=== PATIENT | female | born 1980 | race Caucasian/White ===

== ENCOUNTER 2021-06-03 07:41 | Emergency (ER) | payer OTHER, SELFPAY ==
[2021-06-03 07:46] VITALS: BP 131/59; PULSE 70; RESP 14; TEMP 36.9; O2SAT 96
[2021-06-03 08:10] LABS: Basophils % 0.5 %; Eosinophils # 0.3 10^3/uL (0.0-0.8); Eosinophils % 4.1 %; Hematocrit 42.6 % (37.0-47.0); Hemoglobin 14.3 g/dL (11.5-15.3); Lymphocytes # 2.3 10^3/uL (0.8-4.8); Lymphocytes % 34.8 %; Mean Corpuscular HGB Conc 33.6 g/dL (30.0-36.0); Mean Corpuscular Volume 92.2 fl (81-99); Monocytes # 0.6 10^3/uL (0.2-0.9); Monocytes % 8.6 %; Neutrophils # 3.38 10^3/uL (1.8-7.7); Neutrophils % 51.7 %; Nucleated Red Blood Cells % 0 %; Platelet Count 228 10^3/cmm (130-400); Red Blood Count 4.62 10^6/uL (4.1-5.3); Red Cell Distribution Width 12.5 % (12.1-15.1); White Blood Count 6.5 10^3/uL (4.0-10.0)
--- NOTE | 2021-06-03 08:15 | CT_ITS ---
WS: [id number] CT HEAD TECHNIQUE: Noncontrast CT of the head obtained from the skullbase to the vertex. CLINICAL INFORMATION: new onset seizures COMPARISON: None. DLP: 796.[address] scans at [facility] [place] use at least one of these dose optimization techniques: automated e xposure control; mA and/or kV adjustment per patient size (includes targeted exams where dose is matc hed to clinical indication); or iterative reconstruction. FINDINGS: No evidence of intracranial hemorrhage or mass effect. Ventricular system and basal cisterns are heller nt. No extra-axial fluid collections. Tiny chronic lacunar infarct left caudate. No evidence of mass or mass effect. Normal bower-white differentiation. Mild mucosal thickening in the paranasal sinuses. Mastoid air cells are well aerated. Normal visualiz ed soft tissues. CT/CT head wo con* [id number] IMPRESSION: 1. No evidence of intracranial hemorrhage or mass effect. 2. Normal bower-white differentiation. 3. Tiny chronic lacunar infarct left caudate. 4. Mild mucosal thickening in the paranasal sinuses. 5. No acute intracranial findings.
--- NOTE | 2021-06-03 08:16 | W.ED.SEIZURE ---
HPI - Seizure General: Chief Complaint: Seizure Stated Complaint: seizure activity Time Seen by Provider: 06/03/21 07:45 History of Present Illness: HPI Narrative: 40-year-old female brought in this morning by EMS after witnessed seizure at home. Her witnessed a seizure when I first went in to see her she is aware he witnessed it and she is aware that something happened but she cannot tell me a lot of details. She can remember a few vague things from prior to the seizure and then the Nexium she recalls is ambulance. She tells me she had a similar episode this summer while her camping was not as intense as she describes it. She states that she was never seen after that episode. She does not have any major medical problems she has had a little bit of upper respiratory symptoms last few days otherwise she denies any other pain or aches bowels bladder respiratory is otherwise been normal. She has no known history or family history of seizures. MD complaint: seizure Description of Episode: tonic-clonic movement Witnessed: Yes - by Bystander Trauma: No Seizure History: Yes Place: Home Possible Precipitating Event: none Associated symptoms: Reports confusion; Deny chest pain, chills, cough, diaphoresis, fever(s), anorexia, malaise, rash, short of breath, syncope or weakness Treatments prior to arrival: none Review of Systems Const: Denies: fever(s), chills, malaise or diaphoresis ENMT: Denies: throat pain, ear or mastoid pain, nasal discharge or nasal congestion Card: Denies: chest pain or syncope Resp: Denies: dyspnea, productive cough or non-productive cough GI: Denies: abdominal pain, nausea, vomiting, hematemesis, coffee ground emesis, diarrhea, constipation, bloating, hematochezia or melena : Denies: flank pain, difficulty voiding, dysuria, urinary frequency or urinary urgency Skin/Breast: Denies: rash or pruritus Neuro: Reports: confusion PFSH ED PFSH: Medical History Anxiety with depression Endocervical polyp (~2019) Surgical History History of back surgery (2005) Family History Grandfather Stroke PGF Grandmother Cancer MGM-- Pancreatic CA Denies family history of Diabetes Hypertension Social History Additional social history: - Tobacco use: Denies Alcohol use: Social Drug use: Denies Physical Exam Const: COMMON NORMALS: no acute distress GENERAL APPEARANCE: cooperative and comfortable ORIENTATION/CONSCIOUSNESS: Yes awake, Yes oriented to person, Yes oriented to place and Yes oriented to time HENMT: COMMON NORMALS: normocephalic, atraumatic, hearing grossly normal bilaterally, external ears normal, EAC's normal, TM's normal bilaterally, Normal nasal mucous membranes and turbinates present, moist oral mucous membranes and oropharynx normal HEAD & SCALP: normocephalic and atraumatic NOSE: Normal nasal mucous membranes and turbinates present EXTERNAL EAR: Yes external ears normal EXTERNAL AUDITORY CANAL: EAC's normal TYMPANIC MEMBRANE: TM's normal bilaterally Eye: COMMON NORMALS: Equal, round and reactive pupils present, EOMs intact bilaterally, conjunctivae normal and no scleral icterus CONJUNCTIVA: Yes conjunctivae normal PUPIL: Yes Equal, round and reactive pupils present Neck/C-Spine: COMMON NORMALS: full ROM, no lymphadenopathy, supple and no JVD Lymph: LYMPHATIC: no lymphadenopathy noted and no lymphedema noted Resp: COMMON NORMALS: normal respiratory effort, No retractions, No use of accessory muscles and clear to auscultation bilaterally AUSCULTATION: clear to auscultation bilaterally Cardio: COMMON NORMALS: no JVD, regular rate, regular rhythm and No murmurs present (Cardio) RATE: regular rate RHYTHM: regular rhythm GI: COMMON NORMALS: Soft to palpation and No hepatosplenomegaly present AUSCULTATION: Yes normoactive bowel sounds PALPATION: Yes Soft to palpation, No Tenderness to palpation present (GI), No Guarding due to palpation present (GI) and Yes No hepatosplenomegaly present Extremity: COMMON NORMALS: normal to inspection, capillary refill normal, no clubbing, cyanosis or edema, no calf tenderness and no pedal edema Neuro: SENSORIUM/ORIENTATION: Yes oriented to person, Yes oriented to place and Yes oriented to time Skin: COMMON NORMALS: no rashes or lesions noted GENERAL SKIN EXAM: no rashes or lesions noted Course Vital Signs: Vital signs: Vital Signs Temperature 98.5 F 09/10/21 11:18 Pulse Rate 57 L 06/03/21 11:45 Respiratory Rate 16 06/03/21 11:45 Blood Pressure 104/61 06/03/21 11:45 Pulse Oximetry 99 06/03/21 11:45 MDM - Seizure MDM Narrative: Medical decision making narrative: Reviewed lab and imaging findings with the patient discussed the plan will go and discharge her home Eric set her up for an EEG and follow-up with neurology return if has problems advised not to drive use heavy machinery ladders or step ladders etc. Lab Data: Labs: Lab Results 06/03/21 06/03/21 06/03/21 Range/Units 07:06 07:06 07:06 WBC 6.5 (4.0-10.0) 10^3/ uL RBC 4.62 (4.1-5.3) 10^6/u L Hgb 14.3 (11.5-15.3) g/dL Hct 42.6 (37.0-47.0) % MCV 92.2 (81-99) fl MCH 31.0 (28.0-34.0) pg MCHC 33.6 (30.0-36.0) g/dL RDW 12.5 (12.1-15.1) % Plt Count 228 (130-400) 10^3/c mm MPV 10.0 (7.4-10.4) fL Neut % (Auto) 51.7 % Lymph % (Auto) 34.8 % Republic % (Auto) 8.6 % Eos % (Auto) 4.1 % Baso % (Auto) 0.5 % Neut # (Auto) 3.38 (1.8-7.7) 10^3/u L Lymph # (Auto) 2.3 (0.8-4.8) 10^3/u L Republic # (Auto) 0.6 (0.2-0.9) 10^3/u L Eos # (Auto) 0.3 (0.0-0.8) 10^3/u L Baso # (Auto) 0.0 (0.0-0.1) 10^3/u L Nucleated RBC % (a uto) 0 % Nucleated RBCs # 0.0 /100WBC Sodium 137 (136-145) mmol/L Potassium 4.1 (3.5-5.1) mmol/L Chloride 100 (98-107) mmol/L Carbon Dioxide 26 (22-29) mmol/L Anion Gap 15.1 (5-19) BUN 10 (6-20) mg/dL Creatinine 0.7 (0.5-0.9) mg/dL GFR Calculation 91.8 (90-130) mL/min Glucose 108 (65-115) mg/dL Calculated Osmolal ity 284 L (285-295) mOsm/k g Calcium 8.7 (8.5-10.5) mg/dL Total Bilirubin 0.3 (0.15-1.2) mg/dL AST 14 (0-32) U/L ALT 11 (0-33) U/L Alkaline Phosphata se 63 (35-105) IU/L Creatine Kinase 65 (26-192) U/L Total Protein 7.2 (6.6-8.7) g/dL Albumin 4.0 (3.5-5.2) g/dL Globulin 3.2 (1.3-4.6) g/dL Urine Opiates Scre en (Negative) ng/mL Ur Barbiturates Sc reen (Negative) ng/mL Ur Phencyclidine S crn (Negative) ng/mL Ur Amphetamines Sc reen (Negative) ng/mL U Benzodiazepines Scrn (Negative) ng/mL Urine Cocaine Scre en (Negative) ng/mL U Marijuana (THC) Screen (Negative) ng/mL 06/03/21 Range/Units 07:45 WBC (4.0-10.0) 10^3/ uL RBC (4.1-5.3) 10^6/u L Hgb (11.5-15.3) g/dL Hct (37.0-47.0) % MCV (81-99) fl MCH (28.0-34.0) pg MCHC (30.0-36.0) g/dL RDW (12.1-15.1) % Plt Count (130-400) 10^3/c mm MPV (7.4-10.4) fL Neut % (Auto) % Lymph % (Auto) % Republic % (Auto) % Eos % (Auto) % Baso % (Auto) % Neut # (Auto) (1.8-7.7) 10^3/u L Lymph # (Auto) (0.8-4.8) 10^3/u L Republic # (Auto) (0.2-0.9) 10^3/u L Eos # (Auto) (0.0-0.8) 10^3/u L Baso # (Auto) (0.0-0.1) 10^3/u L Nucleated RBC % (a uto) % Nucleated RBCs # /100WBC Sodium (136-145) mmol/L Potassium (3.5-5.1) mmol/L Chloride (98-107) mmol/L Carbon Dioxide (22-29) mmol/L Anion Gap (5-19) BUN (6-20) mg/dL Creatinine (0.5-0.9) mg/dL GFR Calculation (90-130) mL/min Glucose (65-115) mg/dL Calculated Osmolal ity (285-295) mOsm/k g Calcium (8.5-10.5) mg/dL Total Bilirubin (0.15-1.2) mg/dL AST (0-32) U/L ALT (0-33) U/L Alkaline Phosphata se (35-105) IU/L Creatine Kinase (26-192) U/L Total Protein (6.6-8.7) g/dL Albumin (3.5-5.2) g/dL Globulin (1.3-4.6) g/dL Urine Opiates Scre en Negative (Negative) ng/mL Ur Barbiturates Sc reen Negative (Negative) ng/mL Ur Phencyclidine S crn Negative (Negative) ng/mL Ur Amphetamines Sc reen Negative (Negative) ng/mL U Benzodiazepines Scrn Negative (Negative) ng/mL Urine Cocaine Scre en Negative (Negative) ng/mL U Marijuana (THC) Screen Negative (Negative) ng/mL Discharge Plan Discharge Patient Disposition: Home Clinical Impression: Generalized seizure Condition: Stable Prescriptions: New Keppra 500 mg tablet 500 mg PO BID Qty: 60 RF: 0 No Action escitalopram oxalate [Lexapro] 20 mg tablet 20 mg PO DAILY@19 RF: 0 Mucinex D 60-600 mg Tablet Extended Release 12 Hr 2 tab PO QAM RF: 0 Aleve 220 mg Tablet 220 - 440 mg PO Q4H PRN (Reason: Pain) RF: 0 Mucinex Pm 2 tab PO BEDTIME RF: 0 Discharge Orders: Discharge ED (Routine); Ordered 06/03/21 Ordered By: Zander Guthrie Referrals: Gadiel Goins MD [Primary Care Provider] - Discharge Diet: Usual diet Discharge Activity: Limit activity as instructed Patient Instructions: Opioid Safety Activity Restrictions/Additional Instructions: Recommend not driving using ladders or stepstools or any heavy equipment or power tools. Case management will call to set up an EEG and follow-up with neurology. If you have recurrent seizures return. Coding Level of Care Code ED Endless [employer]amer Tender for Chg Fwd Exam Comprehensive
[2021-06-03 08:24] VITALS: BP 118/68; PULSE 62; RESP 165; O2SAT 98
[2021-06-03 08:30] LABS: Alanine Aminotransferase 11 U/L (0-33); Alkaline Phosphatase 63 IU/L (35-105); Anion Gap 15.1 (5-19); Aspartate Amino Transferase 14 U/L (0-32); Blood Urea Nitrogen 10 mg/dL (6-20); Calcium 8.7 mg/dL (8.5-10.5); Carbon Dioxide 26 mmol/L (22-29); Chloride 100 mmol/L (98-107); Creatinine Clr Calc Pharmacy 92.5099; Globulin 3.2 g/dL (1.3-4.6); Glomerular Filtration Rate 91.8 mL/min (90-130); Glucose 108 mg/dL (65-115); Osmolality Calculated 284 mOsm/kg (285-295); Potassium 4.1 mmol/L (3.5-5.1); Sodium 137 mmol/L (136-145); Total Bilirubin 0.3 mg/dL (0.15-1.2); Total Protein 7.2 g/dL (6.6-8.7)
[2021-06-03 08:41] LABS: Amphetamines Screen Urine Negative (Negative); Barbiturates Screen Urine Negative (Negative); Benzodiazepines Screen Urine Negative (Negative); Cocaine Screen Urine Negative (Negative); Opiate Screen Urine Negative (Negative); PCP Screen Urine Negative (Negative); THC Screen Urine Negative (Negative)
[2021-06-03 08:41] LABS: Creatine Phosphokinase 65 U/L (26-192)
--- NOTE | 2021-06-03 08:42 | PC.PHAR ---
pt states she takes care of her own medications-pt states she thinks she has been taking the mucinex d 2 tabs qam pt states shes pretty sure its the mucinex d that she had from before ext med history shows last filled 06/22/20 9d/s-pt states she has also been taking a mucinex pm at bedtime states she is unsure what all is in the pm tab she has been taking
[2021-06-03 11:18] VITALS: BP 106/57; PULSE 54; RESP 16; TEMP 36.9; O2SAT 97
[2021-06-03 11:45] VITALS: BP 104/61; PULSE 57; RESP 16; O2SAT 99
--- NOTE | 2021-06-03 12:51 | DCPLANNER ---
project development manager had message to schedule a follow up appointment for patient with neurology. project development manager emailed patients information to the neurology clinic. Patients information will be printed and reviewed. Clinic will call patient with appointment information.
[2021-06-04 14:53] LABS: Quest SARS-CoV-2 RNA NOT DETECTED (NOT DETECTED)
--- NOTE | 2021-06-04 18:38 | PC.NURSE ---
pt notified of negative covid results
--- NOTE | 2021-06-08 10:47 | DCPLANNER ---
Addendum entered by Karon Rosenberg 10/14/21 14:15: Patient had a follow up appointment scheduled with Dr. Mello - patient did attend appointment. Original Note: Patient has a follow up appointment scheduled for Tuesday, July 06, 2021 at 2:45 with [facility]. Clinic will call patient with appointment information.
== END 2021-06-03 11:46 | disposition home or self-care (01) ==
PROVIDERS: Emergency Provider Family Medicine; Family Provider Family Medicine; PCP Family Medicine
DX: G40.409 Other generalized epilepsy and epileptic syndromes, not intractable, without status epilepticus (principal); Z20.822 Contact with and (suspected) exposure to COVID-19
CPT/HCPCS: 70450; 80053; 80306; 82550; 85025; 87635; 96374; 99284; J1953

== ENCOUNTER → 2021-06-16 07:57 | Outpatient (BNVA) | payer OTHER, SELFPAY | PROVIDERS: Family Provider Family Medicine; PCP Family Medicine; Referring Provider Family Medicine; Visit Provider Specialist | DX: G40.909 Epilepsy, unspecified, not intractable, without status epilepticus (principal) | CPT/HCPCS: 95816 ==

== ENCOUNTER → 2021-06-20 11:37 | Outpatient (BNVA) | payer OTHER, SELFPAY | PROVIDERS: Family Provider Family Medicine; PCP Family Medicine; Referring Provider Family Medicine; Visit Provider Specialist | DX: R56.9 Unspecified convulsions (principal); F41.9 Anxiety disorder, unspecified | CPT/HCPCS: 99205 ==

== ENCOUNTER 2021-06-28 17:05 | Outpatient (CLI) | payer OTHER, SELFPAY ==
--- NOTE | 2021-06-28 17:30 | MR_ITS ---
WS: [id number] MRI BRAIN WITHOUT CONTRAST HISTORY: R56.9 - Unspecified convulsions COMPARISON: CT 06/03/2021 TECHNIQUE: Diffusion imaging, multiplanar T1, T2 and FLAIR imaging obtained. No evidence for acute infarct or hemorrhage. Merrill-white matter differentiation is normal. There is a tiny lacunar infarct in the LEFT caudate head. There are a few scattered T2 and FLAIR sign al hyperintensities in the white matter. These are within the LEFT cerebrum. These are very nonspecif ic and there are only a few white matter lesions. Ventricles and extra-axial spaces are normal. No inferior displacement of cerebellar tonsils. The sella turcica and pituitary gland are unremarkabl e. Dural venous sinuses and [place] demonstrate no abnormality on this unenhanced studies. Paranasal sinuses: Moderate mucous retention cyst in the LEFT maxillary sinus. Mastoid air cells: Normal. Calvarium and scalp: Intact. MR/MR head wo con* [id number] IMPRESSION: 1. No acute infarct or hemorrhage. 2. Remote tiny lacunar infarct in the LEFT caudate head. 3. Very few T2 and FLAIR signal hyperintensities in the LEFT white matter. The se are nonspecific and could be related to microvascular ischemic disease, migr aines or history of smoking.
== END 2021-06-28 17:06 | disposition home or self-care (01) ==
LOC: RADSHAW 17:09
PROVIDERS: PCP Family Medicine; Visit Provider Specialist
DX: R56.9 Unspecified convulsions (principal)
CPT/HCPCS: 70551

== ENCOUNTER → 2021-07-04 09:06 | Outpatient (BNVA) | payer OTHER, SELFPAY | PROVIDERS: PCP Family Medicine; Visit Provider Specialist | DX: R56.9 Unspecified convulsions (principal) | CPT/HCPCS: 95816 ==

== ENCOUNTER 2021-08-12 11:15 | Outpatient (CLI) | payer OTHER, SELFPAY ==
--- NOTE | 2021-08-12 11:30 | MM_ITS ---
WS: [id number] SCREENING DIGITAL MAMMOGRAM WITH CAD HISTORY: Z12.39 - Encounter for other screening for malignant neoplasm... COMPARISON: 06/19/2019 Bilateral CC and MLO views submitted. Computer aided detection analyzed. Breast composition: The breasts are extremely dense, which lowers the sensitivity of mammography. No suspicious masses, microcalcifications or architectural distortion. Scattered benign calcifications i n each breast. MM/[place] [id number] IMPRESSION: BI-RADS: 2-Benign FOLLOW UP: 1 Year Follow-up
== END 2021-08-12 11:16 | disposition home or self-care (01) ==
PROVIDERS: PCP Family Medicine; Visit Provider Nurse Practitioner Women's Health
DX: Z12.39 Encounter for other screening for malignant neoplasm of breast (principal)
CPT/HCPCS: 77067

== ENCOUNTER → 2022-08-11 15:40 | Outpatient (BNVA) | payer OTHER, SELFPAY | PROVIDERS: PCP Family Medicine; Visit Provider Nurse Practitioner Women's Health | DX: Z13.29 Encounter for screening for other suspected endocrine disorder (principal); Z12.4 Encounter for screening for malignant neoplasm of cervix; Z13.220 Encounter for screening for lipoid disorders; Z13.1 Encounter for screening for diabetes mellitus; Z13.228 Encounter for screening for other metabolic disorders; Z13.0 Encounter for screening for diseases of the blood and blood-forming organs and certain disorders involving the immune mechanism | CPT/HCPCS: 87624 ==

== ENCOUNTER 2022-09-28 07:50 | Outpatient (CLI) | payer OTHER, SELFPAY ==
--- NOTE | 2022-09-28 08:03 | MM_ITS ---
WS: [id number] Bilateral screening 3D tomosynthesis digital mammogram, 09/28/2022 Clinical Data: SCREEN Comparison: 08/11/2021, 06/19/2019. Findings: The breast parenchymal pattern shows extreme density. No spiculated masses or clustered calcification s are seen. There are no secondary signs of carcinoma. There are scattered small benign calcification s in both breasts. MM/[place] [id number] Impression: 1. Negative bilateral mammogram unchanged. 2. Recommend annual screening mammograms. BIRADS: 2-Benign FOLLOW UP: 1 Year Follow-up The CAD instrument checker was used.
== END 2022-09-28 07:51 | disposition home or self-care (01) ==
LOC: RAD 07:50
PROVIDERS: PCP Family Medicine; Visit Provider Nurse Practitioner Women's Health
DX: Z12.31 Encounter for screening mammogram for malignant neoplasm of breast (principal)
CPT/HCPCS: 77063; 77067

== ENCOUNTER → 2022-10-31 17:40 | Outpatient (BNVA) | payer OTHER, SELFPAY | PROVIDERS: PCP Family Medicine; Visit Provider Specialist | DX: G40.109 Localization-related (focal) (partial) symptomatic epilepsy and epileptic syndromes with simple partial seizures, not intractable, without status epilepticus (principal); Z51.81 Encounter for therapeutic drug level monitoring | CPT/HCPCS: 36415; 80175; 80177 ==

== ENCOUNTER → 2023-02-20 11:14 | Outpatient (BNVA) | payer OTHER, SELFPAY | PROVIDERS: PCP Family Medicine; Visit Provider Obstetrics & Gynecology | DX: T19.2XXA Foreign body in vulva and vagina, initial encounter (principal); X58.XXXA Exposure to other specified factors, initial encounter | CPT/HCPCS: 84315; 87077; 87086; 87184 ==

== ENCOUNTER → 2023-08-22 15:00 | Outpatient (BNVA) | payer OTHER, SELFPAY | PROVIDERS: PCP Family Medicine; Visit Provider Obstetrics & Gynecology | DX: R35.0 Frequency of micturition (principal) | CPT/HCPCS: 81000; 87086 ==

== ENCOUNTER → 2023-08-23 08:18 | Outpatient (BNVA) | payer OTHER, SELFPAY | PROVIDERS: PCP Family Medicine; Visit Provider Obstetrics & Gynecology | DX: N84.1 Polyp of cervix uteri (principal); Z00.00 Encounter for general adult medical examination without abnormal findings | CPT/HCPCS: 80053; 80061; 84443; 85025 ==

== ENCOUNTER 2023-10-19 15:21 | Outpatient (CLI) | payer OTHER, SELFPAY ==
--- NOTE | 2023-10-19 15:31 | MM_ITS ---
WS: [id number] BILATERAL 3D TOMOSYNTHESIS DIGITAL SCREENING MAMMOGRAM WITH CAD CLINICAL INFORMATION: SCREENING HISTORY: Screening mammogram. No current complaints. COMPARISON: 2022 TECHNIQUE: Bilateral CC and MLO. FINDINGS: The breast are composed of extremely dense tissue, which can limit the detection of small underlying mass lesions. No suspicious focal mass, asymmetry, calcifications, or architectural distortion. No ev idence of malignancy. Incidental punctate calcifications. IMPRESSION: MM/[place] [id number] BI-RADS: 2-Benign FOLLOW UP: 1 Year Follow-up Recommend return to annual screening mammography.
== END 2023-10-19 15:22 | disposition home or self-care (01) ==
LOC: RAD 15:21
PROVIDERS: PCP Family Medicine; Visit Provider Obstetrics & Gynecology
DX: Z12.31 Encounter for screening mammogram for malignant neoplasm of breast (principal); R92.30 Dense breasts, unspecified
CPT/HCPCS: 77063; 77067

== ENCOUNTER → 2024-02-13 09:45 | Outpatient (BNVA) | payer OTHER, SELFPAY | PROVIDERS: PCP Family Medicine; Visit Provider Specialist | DX: G40.109 Localization-related (focal) (partial) symptomatic epilepsy and epileptic syndromes with simple partial seizures, not intractable, without status epilepticus (principal) | CPT/HCPCS: 36415; 80175 ==

== ENCOUNTER → 2024-10-20 16:05 | Outpatient (BNVA) | payer OTHER, SELFPAY | PROVIDERS: PCP Family Medicine; Visit Provider Obstetrics & Gynecology | DX: Z01.419 Encounter for gynecological examination (general) (routine) without abnormal findings (principal) | CPT/HCPCS: 87624 ==

== ENCOUNTER 2024-11-03 15:22 | Outpatient (CLI) | payer OTHER, SELFPAY ==
--- NOTE | 2024-11-03 15:24 | MM_ITS ---
WS: [id number] BILATERAL 3D TOMOSYNTHESIS DIGITAL SCREENING MAMMOGRAM WITH CAD CLINICAL INFORMATION: SCREENING HISTORY: Screening mammogram. No current complaints. COMPARISON: 10/19/2023 TECHNIQUE: Bilateral CC and MLO. FINDINGS: The breast are composed of extremely dense tissue, which can limit the detection of small underlying mass lesions. No suspicious focal mass, asymmetry, calcifications, or architectural distortion. No evidence of malignancy. A few incidental punctate and clustered calcifications. MM/MM [facility] tomosynthesis [id number] IMPRESSION: DENSITY: The breasts are extremely dense, which lowers the sensitivity of mammo graphy. BI-RADS: 2 - Benign FOLLOW UP: 1 Year Follow-up Recommend return to annual screening mammography.
== END 2024-11-03 15:23 | disposition home or self-care (01) ==
PROVIDERS: Absent Provider Obstetrics & Gynecology; PCP Family Medicine; Visit Provider Family Medicine
DX: Z12.31 Encounter for screening mammogram for malignant neoplasm of breast (principal); R92.343 Mammographic extreme density, bilateral breasts; R92.1 Mammographic calcification found on diagnostic imaging of breast
CPT/HCPCS: 77063; 77067

== ENCOUNTER → 2024-11-04 15:35 | Outpatient (BNVA) | payer OTHER, SELFPAY | PROVIDERS: PCP Family Medicine; Visit Provider Obstetrics & Gynecology | DX: R39.15 Urgency of urination (principal); R93.89 Abnormal findings on diagnostic imaging of other specified body structures; N83.8 Other noninflammatory disorders of ovary, fallopian tube and broad ligament | CPT/HCPCS: 76830 ==